=== PATIENT | male | born 1975 ===

== ENCOUNTER 2018-02-14 15:27 | Emergency (ER) | payer OTHER ==
[2018-02-14 15:38] VITALS: BMI 23.3
[2018-02-14 15:42] VITALS: BP 136/89; PULSE 90; RESP 20; TEMP 98.4; O2SAT 98
--- NOTE | 2018-02-14 16:39 | C.PDOC ---
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 Pt sts, heavy door slammed hand. Noted swelling to ulnar aspect Right hand, localized pain over 5th MCB. Denies skin changes, obvious deformity, sensory or vascular deficits. Time Seen by Provider: 02/14/18 15:44 Chief Complaint (Nursing): Finger,Hand,&Wrist History Per: Patient Past Medical History Reviewed: Historical Data, Nursing Documentation, Vital Signs Vital Signs: Last Vital Signs Temp 98.4 F 02/14/18 15:38 Pulse 90 02/14/18 15:38 Resp 20 02/14/18 15:38 BP 136/89 02/14/18 15:38 Pulse Ox 98 02/14/18 15:38 - Medical History PMH: No Chronic Diseases Family History: States: No Known Family Hx - Social History Hx Alcohol Use: No Hx Substance Use: No - Immunization History Hx Tetanus Toxoid Vaccination: No Hx Influenza Vaccination: Yes Hx Pneumococcal Vaccination: No Review Of Systems Except As Marked, All Systems Reviewed And Found Negative. Constitutional: Negative for: Fever, Chills Musculoskeletal: Positive for: Hand Pain Skin: Negative for: Rash, Bruising Neurological: Negative for: Weakness, Numbness Physical Exam - Physical Exam Appears: Well, Non-toxic, No Acute Distress Skin: Normal Color, Warm, No Rash, No Ecchymosis Head: Normacephalic Eye(s): bilateral: PERRL Extremity: Normal ROM (discomofrt to Right hand flexion phill 5th MCPJ. No neurovascular defic ist to Right hand.), Tenderness (ulnar aspect Right hand over 5th MCB with mod edema.), No Deformity (no obvious to Right hand.), Swelling (ulnar aspect Right hand) Neurological/Psych: Oriented x3, Normal Speech, Normal Motor, Normal Sensation, Normal Reflexes ED Course And Treatment O2 Sat by Pulse Oximetry: 98 - Other Rad Right hand X-Ray: Interpreted by Me, Viewed By Me Interpretation: (+) proximal 5th MCB avulsion fx with hamate fx Progress Note: case discussed with [id number] and reports " unstable fracture, need surgical fixation". Ulnar gutter splint with outpt f/u recommend. results review and discussed with pt. Right hand: ulnar gutter splint applied, sling to Right arm. no neurovascular deficits. Pt advised and ref. to F/u with as scheduled on 02/16/18 for further re-evaluation and tx. Pt understand, stable for discharge now. Orthopedic Time Performed: 16:20 Time Out: Side verified, Site verified, Patient ID confirmed Procedure: Splint Other:: ULnar gutter Location: Right, Hand Consent obtained: Verbal Performed by: Mid-level Provider Diagnosis: Fracture Type: Closed Location: Right Bone: Hamate, Metacarpal, 5th Disposition Counseled Patient/Family Regarding: Studies Performed, Diagnosis, Need For Followup, Rx Given - Disposition Referrals: Lois Del Valle MD [Staff Provider] - Disposition: HOME/ ROUTINE Disposition Time: 16:31 Condition: STABLE Additional Instructions: Follow up with on Friday02/16/18 for further evaluation and treatment Take pain medication as need Return if any new changes. Prescriptions: oxyCODONE/Acetaminophen [Percocet 5/325 mg Tab] 1 tab PO HS PRN #10 tab PRN Reason: Pain Instructions: Hand Fracture Forms: [facility] (Armenian), Work Excuse - Clinical Impression Clinical Impression: Hand fracture
--- NOTE | 2018-02-14 18:28 | RAD ---
PROCEDURE: Right Hand Radiographs. HISTORY: injury COMPARISON: None. FINDINGS: BONES: There is a fracture of the hamate versus the base of the 5th metacarpal bone. Articular component of this fracture is likely. History better demonstrated by CT than plain radiography. Further, the metacarpal bone appears subluxed or possibly dislocated from its articulation with the hamate and further clinical correlation is advised. The remainder of the right hand is unremarkable. JOINTS: As above. SOFT TISSUES: Normal. OTHER FINDINGS: None. IMPRESSION: Fracture of the hamate is favored over fracture of the base of the 5th matter carpal bone at the 5th carpometacarpal articulation. Subluxation is favored over dislocation of the metacarpal bone at the same joint as discussed above. Clinically correlate further.
== END 2018-02-14 17:02 | disposition home or self-care (01) ==
LOC: C.ER 15:27
DX: S62.316A Displaced fracture of base of fifth metacarpal bone, right hand, initial encounter for closed fracture (principal); S62.141A Displaced fracture of body of hamate [unciform] bone, right wrist, initial encounter for closed fracture; W23.0XXA Caught, crushed, jammed, or pinched between moving objects, initial encounter; Y92.009 Unspecified place in unspecified non-institutional (private) residence as the place of occurrence of the external cause